=== PATIENT | female | born 1965 | race Caucasian/White ===

== ENCOUNTER 2018-06-30 12:45 | Emergency (ER) | payer SELFPAY | END 2018-06-30 13:50 | disposition home or self-care (01) | LOC: BURERS 12:45 | DX: B00.89 Other herpesviral infection (principal); F17.210 Nicotine dependence, cigarettes, uncomplicated | CPT/HCPCS: 99283 ==

== ENCOUNTER 2019-02-08 14:00 | Emergency (ER) | payer SELFPAY ==
[2019-02-08] MEDS ORDERED: Sulfameth/Trimethoprim DS 800-160mg TAB ONE (14:14)
== END 2019-02-08 14:27 | disposition home or self-care (01) ==
LOC: BURERS 14:00
DX: L03.111 Cellulitis of right axilla (principal); L73.2 Hidradenitis suppurativa; E11.9 Type 2 diabetes mellitus without complications; I10 Essential (primary) hypertension; F17.210 Nicotine dependence, cigarettes, uncomplicated; Z79.84 Long term (current) use of oral hypoglycemic drugs
CPT/HCPCS: 99283

== ENCOUNTER 2019-09-07 08:58 | Observation (INO) | payer SELFPAY ==
[2019-09-07] MEDS ORDERED: Bupivacaine 0.5% 10 ML VIAL ONE (09:10)
[2019-09-07] MEDS ORDERED: Bupivacaine HCl 0.5%/Epinephrine 1:200,000/PF 30 ml Vial ONE (09:11)
[2019-09-07] MEDS ORDERED: Morphine 4 MG/ML VIAL ONE ×2 (10:04→11:50)
[2019-09-07 10:25] LABS: Eosinophils 2 % (0-10); Hemoglobin 13.8 g/dL (12.0-16.0); Lymphocytes 6 % (21-51); MDiff Complete? YES; Mean Corpuscular HGB CONC 32.9 g/dL (32.0-36.0); Mean Corpuscular Hemoglobin 29.8 pg (27.0-31.0); Mean Corpuscular Volume 90.8 fL (78.0-98.0); Mean Platelet Volume 7.9 fL (7.4-10.4); Monocytes 4 % (0-10); Neutrophil 88 % (42-75); Platelet Count 304 thou/uL (130-400); RBC Distribution Width 11.9 % (11.5-14.5); Red Blood Cell (RBC) Count 4.62 mill/uL (4.20-5.40); White Blood Cell (WBC) Count 16.9 thou/uL (4.8-10.8)
[2019-09-07 10:28] LABS: ALT (SGPT) 10 U/L (8-55); AST (SGOT) 14 U/L (5-34); Alkaline Phosphatase 108 U/L (40-110); Anion Gap 14 mmol/L (10-20); BUN (Urea Nitrogen) 12 mg/dL (9.8-20.1); Bilirubin, Total 0.3 mg/dL (0.2-1.2); Calc. Creatinine Clearance 0 mL/min (70-130); Calcium 8.9 mg/dL (7.8-10.44); Carbon Dioxide 26 mmol/L (22-29); Chloride 97 mmol/L (98-107); Estimated GFR-MDRD 73; Globulin 4.3 g/dL (2.4-3.5); Glucose 496 mg/dL (70-105); Potassium 4.2 mmol/L (3.5-5.1); Protein, Total 7.3 g/dL (6.0-8.3); Sodium 133 mmol/L (136-145)
[2019-09-07] MEDS ORDERED: Clindamycin/D5W 600 mg/50 ml Premix Bag ONE ×3 (11:15→23:27)
--- NOTE | 2019-09-07 11:28 | CT ---
CT SOFT TISSUE NECK WITH CONTRAST: DATE: 09/07/2019. FINDINGS: Spiral CT of the neck was done for evaluation of possible Fortunato's angina. Axial slices were acquire d after giving IV contrast. Coronal and sagittal reconstructions were done. Soft tissue swelling is seen anterior to the mental portion of the mandible. The dentition in the ma ndible is quite poor, especially the incisors anteriorly, but a focal lucency around a single tooth t o suggest a focal abscess is not appreciated. The swelling and inflammatory change anterior to the m andible has 1 small central area in the midline that might be a tiny abscess beginning to organize in the soft tissues, but time will tell. Aside from these findings, there is diffuse moderately severe adenopathy in this region. Enlarged de ep cervical nodes up to 2 cm in size are seen bilaterally. Enlarged submandibular and submental node s are noted. The parotid gland and submandibular glands are generous in size, but contain no focal f luid collections within them. The paranasal sinuses are clear. I would note that the thyroid has multiple lucencies spread throughout it and seems somewhat large, l eft lobe greater than right. A multinodular goiter is probable, but an elective thyroid ultrasound m ight be useful. The airways are currently patent. I see no sign of a peritonsillar abscess at the moment. Incidental findings are very severe degenerative changes of the patient's cervical spine. IMPRESSION: 1. Abundant deep cervical, submandibular, and submental adenopathy up to 2 cm in size bilaterally. 2. Very poor dentition in the mandible, especially anteriorly. No gross focal abscess in the mandib le itself, though the bony purchase of several of the roots of the teeth is tenuous, at best. 3. No drainable fluid collection seen in the soft tissues of the neck. The only area that comes kavin se is a small soft tissue area immediately anterior to the mental portion of the mandible where most of the swelling is. This will have to be watched. 4. Findings suggestive of a multinodular goiter with the left lobe larger than the right. Elective ultrasound would be preferred. 5. Severe cervical spondylosis. Findings discussed with Dr. Fam at 1030 on 09/07/2019. CODE CR POS: HOME
[2019-09-07] MEDS ORDERED: Ondansetron PF 4 MG/2 ML Vial IVP PRN (12:19)
[2019-09-07] MEDS: Sodium Chloride 0.9% 1,000 ML IV SCH ×3 (12:57→23:23)
[2019-09-07] MEDS ORDERED: Dextrose 5% in Water 1,000 ML IV PRN (13:31)
[2019-09-07] MEDS ORDERED: Dextrose 50% Abboject 50 ML SYRINGE SLOW IVP PRN (13:31)
[2019-09-07] MEDS ORDERED: Amlodipine 5 MG TAB PO SCH (13:45)
[2019-09-07] MEDS: HumaLOG 300 UNITS/3 ML VIAL SC PRN ×3 (14:04→20:18)
[2019-09-07 14:24] LABS: Amphetamine Not Detected (NotDetected); Barbiturates Screen Not Detected (NotDetected); Benzodiazepine Screen Not Detected (NotDetected); Cocaine Metabolite Screen Not Detected (NotDetected); Medtox Control Line Valid? VALID (VALID); Methadone Not Detected (NotDetected); Methamphetamine Not Detected (NotDetected); Opiate Screen Detected (NotDetected); Oxycodone Screen Not Detected (NotDetected); Phencyclidine (PCP) Not Detected (NotDetected); THC/Cannabinoid Screen Detected (NotDetected); Tricyclic Screen Not Detected (NotDetected)
[2019-09-07] MEDS: HYDROcodone/Acetaminophen 10/325 mg Tablet PO PRN ×2 (15:39→20:30)
[2019-09-07] MEDS: Clindamycin/D5W 600 MG in Premix Bag 1 BAG IVPB SCH ×2 (17:28→23:30)
[2019-09-07] MEDS: metFORMIN 500 MG TAB PO SCH (17:30)
[2019-09-08] MEDS: HYDROcodone/Acetaminophen 10/325 mg Tablet PO PRN ×5 (00:26→22:04)
[2019-09-08] MEDS ORDERED: Clindamycin/D5W 600 mg/50 ml Premix Bag ONE ×3 (05:20→17:07)
[2019-09-08] MEDS: Sodium Chloride 0.9% 1,000 ML IV SCH ×3 (05:29→17:45)
[2019-09-08] MEDS: Clindamycin/D5W 600 MG in Premix Bag 1 BAG IVPB SCH ×2 (05:30→11:41)
[2019-09-08 06:29] LABS: Band 6 % (5-11); Eosinophils 2 % (0-10); Hemoglobin 11.3 g/dL (12.0-16.0); Lymphocytes 27 % (21-51); MDiff Complete? YES; Mean Corpuscular HGB CONC 32.6 g/dL (32.0-36.0); Mean Platelet Volume 7.2 fL (7.4-10.4); Monocytes 6 % (0-10); Neutrophil 59 % (42-75); Platelet Count 256 thou/uL (130-400); Platelet Morphology Comment Appears Adequate; RBC Distribution Width 11.9 % (11.5-14.5); RBC Morphology Normal; Red Blood Cell (RBC) Count 3.78 mill/uL (4.20-5.40); White Blood Cell (WBC) Count 11.4 thou/uL (4.8-10.8)
[2019-09-08] MEDS: Ondansetron ODT 4 MG TAB SL PRN ×2 (08:36→18:04)
[2019-09-08] MEDS ORDERED: FLU VACC QS2019-20(6MOS UP)/PF 60 MCG/0.5 ML SYRINGE IM ONE (09:00)
[2019-09-08] MEDS: HumaLOG 300 UNITS/3 ML VIAL SC PRN ×4 (09:04→21:55)
[2019-09-08] MEDS: metFORMIN 500 MG TAB PO SCH ×2 (09:04→17:44)
[2019-09-08] MEDS: Amlodipine 5 MG TAB PO SCH (09:05)
[2019-09-08] MEDS ORDERED: Dextrose 50% Abboject 50 ML SYRINGE SLOW IVP PRN (12:54)
[2019-09-08] MEDS ORDERED: Dextrose 5% in Water 1,000 ML IV PRN (12:54)
[2019-09-08] MEDS: CLINDAMYCIN IVPB SCH (17:44)
[2019-09-08] MEDS: NS 600 MG IVPB SCH (17:44)
[2019-09-09] MEDS ORDERED: Clindamycin/D5W 600 mg/50 ml Premix Bag ONE ×3 (00:11→11:26)
[2019-09-09] MEDS: NS 600 MG IVPB SCH ×4 (00:26→17:20)
[2019-09-09] MEDS: CLINDAMYCIN IVPB SCH ×4 (00:26→17:20)
[2019-09-09] MEDS: HYDROcodone/Acetaminophen 10/325 mg Tablet PO PRN ×4 (04:00→16:04)
[2019-09-09 04:37] LABS: #Basophils 0.1 thou/uL (0.0-0.2); #Eosinphils 0.3 thou/uL (0.0-0.7); #Lymphocytes 2.1 thou/uL (1.20-3.40); #Monocytes 0.4 thou/uL (0.11-0.59); #Neutrophils 6.1 thou/uL (1.40-6.50); %Basophils 0.8 % (0.0-1.0); %Eosinophils 3.5 % (0.0-10.0); %Lymphocytes 23.6 % (21.0-51.0); %Monocytes 4.5 % (0.0-10.0); %Neutrophils 67.7 % (42.0-75.0); Hemoglobin 11.5 g/dL (12.0-16.0); Mean Corpuscular HGB CONC 33.2 g/dL (32.0-36.0); Mean Corpuscular Hemoglobin 30.2 pg (27.0-31.0); Mean Platelet Volume 6.8 fL (7.4-10.4); Platelet Count 274 thou/uL (130-400); RBC Distribution Width 12.2 % (11.5-14.5); Red Blood Cell (RBC) Count 3.81 mill/uL (4.20-5.40)
[2019-09-09 04:48] LABS: ALT (SGPT) 7 U/L (8-55); AST (SGOT) 10 U/L (5-34); Albumin 2.5 g/dL (3.5-5.0); Alkaline Phosphatase 93 U/L (40-110); Anion Gap 11 mmol/L (10-20); BUN (Urea Nitrogen) 14 mg/dL (9.8-20.1); Bilirubin, Total Less than 0.2 mg/dL (0.2-1.2); Calc. Creatinine Clearance 122 mL/min (70-130); Calcium 8.7 mg/dL (7.8-10.44); Carbon Dioxide 27 mmol/L (22-29); Chloride 101 mmol/L (98-107); Estimated GFR-MDRD 86; Globulin 3.4 g/dL (2.4-3.5); Glucose 246 mg/dL (70-105); Protein, Total 5.9 g/dL (6.0-8.3); Sodium 135 mmol/L (136-145)
[2019-09-09] MEDS: Sodium Chloride 0.9% 1,000 ML IV SCH ×2 (05:32→17:21)
--- NOTE | 2019-09-09 07:19 | HP ---
CHIEF COMPLAINT: Pain and swelling in her chin. HISTORY OF PRESENT ILLNESS: The patient is a 53-year-old white female with a history of poorly controlled noncompliant diabetes mellitus, who reports about 2 months ago she was admitted to [facility] in [place] for a cellulitis or infection of her right breast requiring IV and then followed by oral antibiotics, who was doing well until about 2 days prior to admission. The patient reports increased swelling, pain and tenderness in her jaw and chin area. The patient has stopped taking her metformin and presents to the emergency room on the day of admission. In the emergency room, the patient had elevated white count of 16,900, subjective fevers and chills, obvious swelling to the jaw and chin area, was diagnosed with cellulitis. Also of note, the patient had very poor dentition. She reports loosing a tooth about a week or so prior to admission. The patient is admitted to the hospital for IV antibiotics. PAST MEDICAL HISTORY: 1. Insulin-dependent diabetes mellitus. The patient had been on insulin. Apparently when she stopped going to [facility] and went from an insulin pen to syringes, she had difficulty being compliant, also had cost issues with her [facility] doctor, has not been taking her insulin. The patient does report compliance with metformin. 2. History of tachycardia. The patient says that she has had this her entire life. I do not know of any workup. 3. Hypertension. The patient has been noncompliant on amlodipine. 4. Hyperlipidemia. The patient has not been taking her hyperlipidemia medication as well. PAST SURGICAL HISTORY: The patient has a history of tubal ligation, tonsillectomy, and adenoidectomy as well. MEDICATIONS: The patient has metformin 1000 mg b.i.d., amlodipine 10 mg daily, and insulin for which the patient is not taking. ALLERGIES: THE PATIENT REPORTS A HISTORY OF ALLERGIES TO DOXYCYCLINE AND RIFAMPIN. SOCIAL HISTORY: The patient reports social drinking of alcohol. She does report a social marijuana use and smoking about a half a pack per day. The patient is normally independent in her activities of daily living. She is currently unemployed and has had difficulty maintaining job employment. REVIEW OF SYSTEMS: The patient had decreased appetite with her recent episode of jaw pain. Prior to that, no history of decreased appetite. No nausea, vomiting, or diarrhea. No dysuria, hematuria, or change in urinary frequency. The patient was sad when discussing her current social and health care state, but no significant history of depression. The patient denies any new rashes, but does report that she occasionally gets some bumps or pimples that if she scratches, it gets real red by her report. The patient has had some weight loss over the recent past, which is reported as intentional. PHYSICAL EXAMINATION: GENERAL: White female, alert and oriented x3, in no obvious distress. The patient had significant pain due to her oral symptoms. VITAL SIGNS: In the emergency room, the patient had a blood pressure 162/102, pulse 120, respiratory rate was 16, temperature was 97.8, and O2 saturation was 98% on room air. HEENT: Extraocular movements were intact. The patient did have some scabs on her right cheek and under her left eyelid, which she did scratch during the exam. Oropharynx showed very poor dentition with loss of multiple teeth. There was an area of a small possible pustule on the inner lower lip and with induration significantly to the chin area as well as diffuse induration in the submental and neck area with multiple palpable lymph nodes. The patient reports within the first 24 hours decreased pain from admission. CHEST: Clear to auscultation bilaterally. HEART: Rapid, but regular rate and rhythm. ABDOMEN: Obese, soft, nontender, and nondistended. No masses are palpated. EXTREMITIES: Show no cyanosis, clubbing, or edema. No obvious lesions or rashes were noted. LABORATORY DATA: On admission, the patient had a CBC with a white count of 16,900 with H and H that was normal. Chemistry panel was significant for a serum sodium of 133, glucose of 496. Lactic acid was 1.3. Toxicology, urine drug screen did show positive opioids as well as marijuana, which the patient admits to. CT scan was performed of the neck and soft tissue, which did show significant adenopathy with lymph nodes up to 2 cm in size. There was no focal abscess appreciated. Very poor dentition was noted and there was a multinodular goiter noted in the left lobe of the thyroid. Incidentally, severe cervical spondylosis was noted as well. ASSESSMENT AND PLAN: 1. Severe dental caries with soft tissue cellulitis of the jaw. The patient will be admitted to the hospital on IV clindamycin 600 mg IV q.6 hours. She will continue on IV fluids. We will follow her H and H and CBC. We will evaluate for any developing abscesses, although none were seen on admission. 2. Diabetes mellitus. The patient will be continued on her metformin. She will be started on insulin sliding scale, aggressive scale with a history of insulin-dependent diabetes. We will give education. She will need outpatient management of her diabetes as well. 3. Hypertension. We will start the patient back on her amlodipine and follow her blood pressures. 4. Multinodular goiter. We will obtain a TSH. She may need to have this followed up as an outpatient basis. 5. Disposition. The patient will need outpatient management of her diabetes. She appears to have had multiple soft tissue infections, likely exacerbated by her uncontrolled diabetes. This will have to be followed as well. Plan is for the patient to be discharged to home. She will be admitted to observation status. Hopefully, she will be discharged within 3 days. Job ID: [id number]
[2019-09-09] MEDS: HumaLOG 300 UNITS/3 ML VIAL SC PRN ×3 (08:13→18:07)
[2019-09-09] MEDS: metFORMIN 500 MG TAB PO SCH ×2 (08:13→16:04)
[2019-09-09] MEDS: Amlodipine 5 MG TAB PO SCH (08:14)
[2019-09-09 12:39] LABS: Hemoglobin A1c 13.8 % (4.0-6.0)
[2019-09-09] MEDS: Ondansetron ODT 4 MG TAB SL PRN (18:35)
[2019-09-10] MEDS: CLINDAMYCIN IVPB SCH ×3 (00:30→11:41)
[2019-09-10] MEDS: NS 600 MG IVPB SCH ×3 (00:30→11:41)
[2019-09-10] MEDS: HYDROcodone/Acetaminophen 10/325 mg Tablet PO PRN ×4 (04:22→23:03)
[2019-09-10] MEDS: Sodium Chloride 0.9% 1,000 ML IV SCH ×2 (04:23→12:13)
[2019-09-10] MEDS: HumaLOG 300 UNITS/3 ML VIAL SC PRN ×3 (08:40→18:29)
[2019-09-10] MEDS: metFORMIN 500 MG TAB PO SCH ×2 (08:40→18:13)
[2019-09-10] MEDS: Amlodipine 5 MG TAB PO SCH (08:41)
[2019-09-10] MEDS ORDERED: diphenhydrAMINE 12.5 MG/5 ML UDCUP ONE (11:24)
[2019-09-10 14:09] VITALS: BMI 35.1
[2019-09-10] MEDS: Clindamycin/D5W 600 MG in Premix Bag 1 BAG IVPB SCH ×2 (18:12→23:08)
[2019-09-11] MEDS: Clindamycin/D5W 600 MG in Premix Bag 1 BAG IVPB SCH ×3 (06:33→17:48)
[2019-09-11] MEDS: metFORMIN 500 MG TAB PO SCH ×2 (08:43→17:49)
[2019-09-11] MEDS: HumaLOG 300 UNITS/3 ML VIAL SC PRN ×3 (08:44→18:08)
[2019-09-11] MEDS: Amlodipine 5 MG TAB PO SCH (08:44)
[2019-09-11 17:35] VITALS: BP 156/78; TEMP 98
[2019-09-11] MEDS: HYDROcodone/Acetaminophen 10/325 mg Tablet PO PRN (18:07)
== END 2019-09-11 19:45 | disposition home or self-care (01) ==
LOC: BURERS 08:58 → BURMED 11:23
PROVIDERS: ADMIT Family Medicine; ATTEND Family Medicine
DX: L03.211 Cellulitis of face (principal); K02.9 Dental caries, unspecified; E11.9 Type 2 diabetes mellitus without complications; I10 Essential (primary) hypertension; E04.2 Nontoxic multinodular goiter; E78.5 Hyperlipidemia, unspecified; F17.210 Nicotine dependence, cigarettes, uncomplicated; M47.812 Spondylosis without myelopathy or radiculopathy, cervical region; F12.10 Cannabis abuse, uncomplicated; Z79.84 Long term (current) use of oral hypoglycemic drugs; Z79.899 Other long term (current) drug therapy; Z88.1 Allergy status to other antibiotic agents
CPT/HCPCS: 36415; 36416; 70491; 80053; 80306; 83036; 83605; 84443; 85025; 87040; 87077; 87149; 87186; 90471; 90686; 96361; 96365; 96366; 96375; 96376; G0008; G0378; J0670; J2270; J3490; Q0162; Q0163

== ENCOUNTER 2020-09-11 00:58 | Emergency (ER) | payer SELFPAY ==
[2020-09-11] MEDS ORDERED: Acetaminophen/Codeine 30-300mg Tablet ONE (01:14)
[2020-09-11] MEDS ORDERED: Amoxicillin/Potassium Clav 875 MG TAB ONE (01:16)
== END 2020-09-11 01:20 | disposition home or self-care (01) ==
LOC: BURERS 00:58
DX: S09.21XA Traumatic rupture of right ear drum, initial encounter (principal); H60.91 Unspecified otitis externa, right ear; E11.9 Type 2 diabetes mellitus without complications; I10 Essential (primary) hypertension; F17.210 Nicotine dependence, cigarettes, uncomplicated; Z79.84 Long term (current) use of oral hypoglycemic drugs
CPT/HCPCS: 99283

== ENCOUNTER 2021-05-24 17:36 | Emergency (ER) | payer SELFPAY | END 2021-05-24 18:47 | disposition home or self-care (01) | LOC: BURERS 17:36 | DX: L30.9 Dermatitis, unspecified (principal); S00.81XA Abrasion of other part of head, initial encounter; S40.812A Abrasion of left upper arm, initial encounter; S40.811A Abrasion of right upper arm, initial encounter; E11.9 Type 2 diabetes mellitus without complications; I10 Essential (primary) hypertension; F17.210 Nicotine dependence, cigarettes, uncomplicated; Z79.84 Long term (current) use of oral hypoglycemic drugs; X58.XXXA Exposure to other specified factors, initial encounter | CPT/HCPCS: 99282 ==

== ENCOUNTER 2022-08-06 18:47 | Emergency (ER) | payer SELFPAY ==
[2022-08-06] MEDS ORDERED: ALPRAZolam 0.5 MG TAB ONE (19:40)
[2022-08-06 19:43] LABS: #Eosinphils 0.3 thou/uL (0.0-0.7); #Lymphocytes 1.8 thou/uL (1.20-3.40); #Monocytes 0.6 thou/uL (0.11-0.59); #Neutrophils 6.2 thou/uL (1.40-6.50); %Basophils 0.5 % (0.0-1.0); %Eosinophils 3.6 % (0.0-10.0); %Lymphocytes 19.6 % (21.0-51.0); %Monocytes 6.5 % (0.0-10.0); %Neutrophils 69.8 % (42.0-75.0); Hemoglobin 11.8 g/dL (12.0-16.0); Mean Corpuscular HGB CONC 32.9 g/dL (32.0-36.0); Mean Corpuscular Hemoglobin 29.6 pg (27.0-31.0); Mean Platelet Volume 6.8 fL (7.4-10.4); Platelet Count 361 10x3/uL (130-400); RBC Distribution Width 13.4 % (11.5-14.5); Red Blood Cell (RBC) Count 3.99 mill/uL (4.20-5.40); White Blood Cell (WBC) Count 8.9 10x3/uL (4.8-10.8)
[2022-08-06 20:23] LABS: CKMB 4.7 ng/mL (0-6.6)
[2022-08-06 20:28] LABS: ALT (SGPT) 12 U/L (8-55); AST (SGOT) 10 U/L (5-34); Albumin 2.9 g/dL (3.5-5.0); Alkaline Phosphatase 73 U/L (40-110); Anion Gap 13 mmol/L (10-20); BUN (Urea Nitrogen) 26 mg/dL (9.8-20.1); Bilirubin, Total 0.2 mg/dL (0.2-1.2); Calc. Creatinine Clearance 0 mL/min (70-130); Calcium 9.3 mg/dL (7.8-10.44); Carbon Dioxide 26 mmol/L (22-29); Chloride 103 mmol/L (98-107); Estimated GFR 36; Globulin 3.7 g/dL (2.4-3.5); Glucose 300 mg/dL (70-105); Potassium 3.9 mmol/L (3.5-5.1); Protein, Total 6.6 g/dL (6.0-8.3); Sodium 138 mmol/L (136-145)
[2022-08-06] MEDS ORDERED: Furosemide 100 MG/10 ML VIAL ONE (20:28)
== END 2022-08-06 22:25 | disposition short-term general hospital (02) ==
LOC: BURERS 18:47
DX: I11.0 Hypertensive heart disease with heart failure (principal); I50.9 Heart failure, unspecified; E11.65 Type 2 diabetes mellitus with hyperglycemia; F17.210 Nicotine dependence, cigarettes, uncomplicated; Z79.4 Long term (current) use of insulin
CPT/HCPCS: 71045; 80053; 82553; 83880; 84484; 85025; 93005; 94760; 96374; J1940

== ENCOUNTER 2022-08-20 16:47 | Emergency (ER) | payer SELFPAY ==
[2022-08-20 17:16] LABS: Bilirubin Negative (Negative); Blood, Urine Small (Negative); Clarity Slightly Cloudy (Clear); Glucose, Urine (Dipstick) 100 mg/dL (Negative); Ketone, Urine Negative (Negative); Leukocyte Negative (Negative); Nitrite Negative (Negative); Protein, Urine (Dipstick) > or equal to 300 mg/dL (Neg-Trace); Specific Gravity, Urine 1.025 (1.005-1.030); Urobilinogen 0.2 mg/dL (Less than 2)
[2022-08-20 17:25] LABS: Bacteria/HPF 1+ HPF (None Seen); WBC/HPF 0-3 HPF (0-3)
[2022-08-20] MEDS ORDERED: traMADol HCl 50 MG TAB ONE (17:48)
[2022-08-20] MEDS ORDERED: Ibuprofen 800 MG TAB ONE (17:49)
== END 2022-08-20 17:58 | disposition home or self-care (01) ==
LOC: BURERS 16:47
DX: R07.81 Pleurodynia (principal); K21.9 Gastro-esophageal reflux disease without esophagitis; I11.0 Hypertensive heart disease with heart failure; I50.9 Heart failure, unspecified; E11.9 Type 2 diabetes mellitus without complications; Z87.891 Personal history of nicotine dependence; Z79.4 Long term (current) use of insulin; Z79.899 Other long term (current) drug therapy
CPT/HCPCS: 71046; 81003; 81015

== ENCOUNTER 2023-03-13 10:15 | Emergency (ER) | payer SELFPAY ==
[2023-03-13 10:58] LABS: #Basophils 0.1 thou/uL (0.0-0.2); #Eosinphils 0.2 thou/uL (0.0-0.7); #Lymphocytes 1.4 thou/uL (1.20-3.40); #Monocytes 0.5 thou/uL (0.11-0.59); #Neutrophils 6.2 thou/uL (1.40-6.50); %Basophils 0.6 % (0.0-1.0); %Lymphocytes 16.7 % (21.0-51.0); %Monocytes 5.7 % (0.0-10.0); Hematocrit 29.2 % (36.0-47.0); Hemoglobin 9.2 g/dL (12.0-16.0); Mean Corpuscular HGB CONC 31.5 g/dL (32.0-36.0); Mean Corpuscular Hemoglobin 28.7 pg (27.0-31.0); Mean Corpuscular Volume 91.2 fl (78.0-98.0); Mean Platelet Volume 5.6 fL (7.4-10.4); Platelet Count 344 10x3/uL (130-400); RBC Distribution Width 14.8 % (11.5-14.5); White Blood Cell (WBC) Count 8.3 10x3/uL (4.8-10.8)
[2023-03-13 11:23] LABS: Troponin I 0.017 ng/mL (< 0.028)
[2023-03-13] MEDS ORDERED: Furosemide 40 MG/4 ML VIAL ONE (11:28)
[2023-03-13] MEDS ORDERED: Nitroglycerin 2% Ointment 1 INCH/1 GM Packet ONE (11:28)
[2023-03-13] MEDS ORDERED: Aspirin Chewable 81 MG TAB ONE (11:28)
[2023-03-13 12:43] LABS: ALT (SGPT) 7 U/L (8-55); AST (SGOT) 8 U/L (5-34); Alkaline Phosphatase 61 U/L (40-110); Anion Gap 17 mmol/L (10-20); BUN (Urea Nitrogen) 32 mg/dL (9.8-20.1); Calc. Creatinine Clearance 0 mL/min (70-130); Calcium 10.1 mg/dL (7.8-10.44); Carbon Dioxide 23 mmol/L (22-29); Chloride 101 mmol/L (98-107); Estimated GFR 49; Globulin 3.6 g/dL (2.4-3.5); Glucose 220 mg/dL (70-105); Potassium 4.6 mmol/L (3.5-5.1); Protein, Total 6.6 g/dL (6.0-8.3); Sodium 136 mmol/L (136-145)
[2023-03-13 13:50] LABS: Bilirubin, Total 0.4 mg/dL (0.2-1.2)
== END 2023-03-13 14:00 | disposition short-term general hospital (02) ==
LOC: BURERS 10:15
DX: I11.0 Hypertensive heart disease with heart failure (principal); I50.9 Heart failure, unspecified; E11.9 Type 2 diabetes mellitus without complications; Z87.891 Personal history of nicotine dependence; Z79.84 Long term (current) use of oral hypoglycemic drugs; Z79.899 Other long term (current) drug therapy
CPT/HCPCS: 36415; 71045; 80053; 83880; 84484; 85025; 93005; 94760; 96374; J1940